=== PATIENT | male | born 1980 | race Caucasian/White ===

== ENCOUNTER 2022-02-22 00:49 | Inpatient (IN) | payer MEDICAID ==
[~2022-02-22] VITALS: Ht 177.8 cm; Wt 121.1 kg
[2022-02-22 00:59] VITALS: BP 125/82
--- NOTE | 2022-02-22 01:06 | NUR ---
PT AMBULATED TO BED #5
[2022-02-22] MEDS ORDERED: VANCOMYCIN 1,000 MG in DEXTROSE 5% 250 ML IV ONE (02:30)
[2022-02-22] MEDS ORDERED: KETOROLAC 30 MG/ML VIAL IVP ONE (02:30)
[2022-02-22 02:56] LABS: BASOPHILS # (AUTO) 0.1 K/uL (0.00-0.22); BASOPHILS % (AUTO) 0.7 % (0.0-2.0); EOSINOPHILS # (AUTO) 0.1 K/uL (0-0.4); EOSINOPHILS % (AUTO) 0.4 % (0.0-4.0); HEMATOCRIT 38.8 % (36-52); HEMOGLOBIN 13.2 g/dL (12.0-18.0); LYMPHOCYTES # (AUTO) 3.2 K/uL (2.0-11.5); LYMPHOCYTES % (AUTO) 14.9 % (20.5-51.1); MEAN CORPUSCULAR HEMOGLOBIN 31 pg (27-31); MEAN CORPUSCULAR HGB CONC 34 g/dL (33-37); MEAN CORPUSCULAR VOLUME 91.8 fL (80-94); MONOCYTES # (AUTO) 1.8 K/uL (0.8-1.0); MONOCYTES % (AUTO) 8.3 % (1.7-9.3); NEUTROPHILS # (AUTO) 16.3 K/uL (1.8-7.7); PLATELET COUNT (AUTO) 350 K/uL (140-450); RED BLOOD CELL COUNT(AUTO) 4.22 MIL/uL (4.20-6.10); RED CELL DISTRIBUTION WIDTH 12.7 % (11.6-13.7); WHITE BLOOD COUNT (AUTO) 21.5 K/uL (4.8-10.8)
[2022-02-22] MEDS ORDERED: cefTRIAXone 1,000 MG VIAL ONE (03:01)
[2022-02-22 03:12] LABS: ALBUMIN 3.6 g/dL (3.4-5.0); CREATININE 1.4 mg/dL (0.6-1.3); TOTAL BILIRUBIN 1.1 mg/dL (0.0-1.0)
[2022-02-22 03:14] LABS: NEUTROPHILS % (AUTO) 75.7 % (42.2-75.2)
--- NOTE | 2022-02-22 03:27 | NUR ---
MELIDA SWAB COLLECTED AND WALKED TO LAB.
[2022-02-22 03:31] LABS: ANION GAP 14.3 (8-16); CARBON DIOXIDE 24.2 mmol/L (21-32); POTASSIUM 3.5 mmol/L (3.5-5.1)
[2022-02-22] MEDS ORDERED: VANCOMYCIN 1,000 MG VIAL ONE (03:54)
[2022-02-22] MEDS ORDERED: NACL 0.9% 2,000 ML IV ONE (04:00)
--- NOTE | 2022-02-22 04:47 | NUR ---
us at bedside
[2022-02-22] MEDS ORDERED: ACET-10509 PO (04:55)
--- NOTE | 2022-02-22 05:58 | NUR ---
Pt sleeping in bed. fluids running. x2 side rails up for safety. blanket provided. vss.
--- NOTE | 2022-02-22 06:25 | NUR ---
RECEIVED PT FROM ER NURSE, TRANSPORTED VIA GURNEY. PT AMBULATED TO BED ON HIS OWN. PT ALERT,AWAKE AND ORIENTED.PT ON ROOM AIR, BREATHING EQUAL AND UNLABORED, NO DISTRESS NOTED. WOUND ON RIGHT ELBOW, SWELLING R UPPER EXTREMITY. NO DRAINAGE NOTED. IV ON L HAND, G 20.MRSA SWAB DONE, VS FOLLOWS BP - 132/83, HR 94, RR 17, O2 96%, T 98.2.ALL PRECAUTIONS IN PLACE. CALL LIGHT WITHIN REACH. WILL CONTINUE TO MONITOR.
--- NOTE | 2022-02-22 06:29 | NUR ---
Patient will be admitted to care of DR. BACA. Admited to MED-SURG. Will go to room 104 B. Belongings list completed. Report to RONDA.
--- NOTE | 2022-02-22 07:30 | NUR ---
RECEIVED REPORT FROM NIGHTSHIFT NURSE FOR CONTINUITY OF CARE. PLAN OF CARE DISCUSSED. PT CURRENTLY SLEEPING BUT EASILY AROUSED. IV BOLUS STILL RUNNING ON LEFT HAND IV. PT A/OX4, BREATHING EVEN, REGULAR, AND UNLABORED ON RA. CUT ON RIGHT ELBOW NOTED, PT DENIES PAIN AT THIS TIME. PT AMBULATORY, AND CONTINENT OF THE BOWEL AND BLADDER. PT IN STABLE CONDITION.
[2022-02-22 08:00] VITALS: BP 135/79
--- NOTE | 2022-02-22 08:30 | NUR ---
PATIENT HAS BEEN SCREENED AND CATEGORIZED LOW NUTRITION RISK. PATIENT WILL BE SEEN WITHIN 7 DAYS OF ADMISSION. 02/22/22-02/28/[address]
--- NOTE | 2022-02-22 09:30 | NUR ---
PT VISUALLY ASSESSED, CURRENTLY SLEEPING. PT IN STABLE CONDITION, NO SIGNS OF DISTRESS NOTED AT THIS TIME.
[2022-02-22] MEDS ORDERED: MAGNESIUM OXIDE 400 MG TAB PO PRN (10:20)
[2022-02-22] MEDS ORDERED: DOCUSATE SODIUM 100 MG GELCAP PO PRN (10:20)
[2022-02-22] MEDS ORDERED: POTASSIUM CHLORIDE 10 MEQ TABER PO PRN (10:20)
[2022-02-22] MEDS ORDERED: MORPHINE SULFATE 2 MG/ML SYR IVP PRN (10:20)
[2022-02-22] MEDS ORDERED: ACETAMINOPHEN 325 MG TAB PO PRN (10:20)
[2022-02-22] MEDS ORDERED: ONDANSETRON 4 MG/2 ML VIAL IM/IVP PRN (10:20)
[2022-02-22] MEDS ORDERED: SODIUM PHOS / POTASSIUM PHOS 1 PKT PDR PO PRN (10:20)
[2022-02-22] MEDS ORDERED: VANCOMYCIN PER PHARMACY MC PRN (10:30)
[2022-02-22 10:58] LABS: MAGNESIUM 1.9 mg/dL (1.8-2.4); PHOSPHORUS 4.1 mg/dL (2.5-4.9)
--- NOTE | 2022-02-22 11:00 | NUR ---
PT'S AT THE BESIDE. DISCUSSED PT'S CURRENT PLAN OF CARE FOR IV ANTIBIOTICS. PT IN STABLE CONDITION, WILL CONTINUE TO MONITOR.
[2022-02-22] MEDS: NACL 0.9% 1,000 ML IV SCH (11:07)
[2022-02-22] MEDS: HYDROcodone/APAP 5/325 MG 1 TAB TAB PO PRN (12:35)
--- NOTE | 2022-02-22 12:35 | NUR ---
PT COMPLAINED OF PAIN 7/10 IN UPPER RIGHT EXTREMITY. PRN NORCO GIVEN.
--- NOTE | 2022-02-22 13:50 | NUR ---
PT'S BROTHER AT THE BEDSIDE, PT VISUALLY ASSESSED AND IN STABLE CONDITION, DENIES PAIN AT THIS TIME.
--- NOTE | 2022-02-22 15:00 | NUR ---
PT VISUALLY ASSESSED. PT IN STABLE CONDITION, DENIES PAIN AT THIS TIME. REQUESTED ICE PACK FOR HIS ARM.
[2022-02-22 16:00] VITALS: BP 134/84
--- NOTE | 2022-02-22 18:00 | NUR ---
PT VISUALLY ASSESSED. PT IN STABLE CONDITION, DENIES PAIN AT THIS TIME.
[2022-02-22] MEDS: VANCOMYCIN 1,500 MG in DEXTROSE 5% 500 ML IV SCH (18:14)
--- NOTE | 2022-02-22 19:36 | NUR ---
ENDORSED PT TO NIGHTSHIFT NURSE FOR CONTINUITY OF CARE. DISCUSSED PLAN OF CARE. PT STABLE CONDITION.
--- NOTE | 2022-02-22 20:00 | NUR ---
RECEIVED REPORT FROM MORNING SHIFT NURSE FOR CONTINUITY OF CARE. PATIENT ASLEEP WITH NO S/S OF DISTRESS NOTED. PATIENT IS ON ROOM AIR, AOX4. PATIENT IV SITE ON LEFT HAND GAUGE 20 INFUSING NS, 40 CC/HOUR. CALL LIGHT WITHIN REACH. ALL SAFETY MEASURE IN PLACE.
--- NOTE | 2022-02-22 22:00 | NUR ---
PATIENT IS AWAKE AND TALKING TO HER IN CITIZEN OF [place]. NO S/S OF DISTRESS NOTED. VITAL SIGNS ARE WITHIN NORMAL RANGE, SATING ON 96%. PATIENT'S INFORMED REGARDING THE VISITING HOURS IN HOSPITAL. WILL CONTINUE TO MONITOR.
--- NOTE | 2022-02-23 | NUR ---
PATIENT IS ON SLEEP. CHEST RISE AND FALL WAS NOTED. CALL LIGHT WITHIN REACH. ALL SAFETY MEASURES WAS IMPLEMENTED. WILL CONTINUE TO MONITOR.
--- NOTE | 2022-02-23 02:00 | NUR ---
PATIENT IS ON SLEEP. CHEST RISE AND FALL WAS NOTED. PATIENT HAS IV OF NS RUNNING AT 40ML/HR, IN LEFT HAND, GAUGE 20. CALL LIGHT WITHIN REACH. ALL SAFETY MEASURES WAS IMPLEMENTED. WILL CONTINUE TO MONITOR.
[2022-02-23 04:00] VITALS: BP 141/90
[2022-02-23] MEDS: VANCOMYCIN 1,500 MG in DEXTROSE 5% 500 ML IV SCH (04:34)
--- NOTE | 2022-02-23 06:00 | NUR ---
PATIENT DUE MEDICATION WAS GIVEN. MORNING CARE WAS GIVEN. CALL LIGHT WITHIN REACH. ALL SAFETY MEASURE WAS IMPLEMENTED. WILL CONTINUE TO MONITOR.
--- NOTE | 2022-02-23 06:47 | NUR ---
PT IS STABLE. NO ACUTE EVENTS THROUGHOUT THE NIGHT. NO S/SX OF DISTRESS NOTED. ALL NEEDS MET.DENIES PAIN AT THE MOMENT. ALL PRECAUTIONS IN PLACE.CALL LIGHT WITHIN REACH. WILL ENDORSE TO AM SHIFT NURSE.
[2022-02-23 07:29] LABS: BASOPHILS # (AUTO) 0.1 K/uL (0.00-0.22); BASOPHILS % (AUTO) 0.9 % (0.0-2.0); EOSINOPHILS # (AUTO) 0.1 K/uL (0-0.4); EOSINOPHILS % (AUTO) 0.8 % (0.0-4.0); HEMOGLOBIN 12.4 g/dL (12.0-18.0); LYMPHOCYTES # (AUTO) 2.6 K/uL (2.0-11.5); LYMPHOCYTES % (AUTO) 16.5 % (20.5-51.1); MEAN CORPUSCULAR HEMOGLOBIN 31 pg (27-31); MEAN CORPUSCULAR HGB CONC 34 g/dL (33-37); MEAN CORPUSCULAR VOLUME 93.2 fL (80-94); MONOCYTES # (AUTO) 1.4 K/uL (0.8-1.0); NEUTROPHILS # (AUTO) 11.6 K/uL (1.8-7.7); NEUTROPHILS % (AUTO) 72.8 % (42.2-75.2); PLATELET COUNT (AUTO) 334 K/uL (140-450); RED BLOOD CELL COUNT(AUTO) 3.97 MIL/uL (4.20-6.10); RED CELL DISTRIBUTION WIDTH 13.2 % (11.6-13.7); WHITE BLOOD COUNT (AUTO) 15.9 K/uL (4.8-10.8)
--- NOTE | 2022-02-23 07:30 | NUR ---
ENDORSED PATIENT TO MORNING SHIFT NURSE FOR CONTINUITY OF CARE.
--- NOTE | 2022-02-23 07:31 | NUR ---
RECEIVED REPORT FROM MOLD SHOP SUPERVISOR NURSE FOR CONTINUITY OF CARE. PT IN BED SLEEPING AT THIS TIME. RESPIRATIONS ARE EVEN AND UNLABORED ON ROOM AIR. NO SIGNS OF DISTRESS NOTED. PT IS ALERT AND ORIENTED X4, ABLE TO VERBALIZE, ABLE TO FOLLOW COMMANDS. PERSIAN SPEAKING. PT IS ON CCHO DIET, ABD IS NONTENDER, NONDISTENDED WITH BOWEL SOUNDS PRESENT. PT IS CONTINENT OF BOWEL AND BLADDER. PT ABLE TO AMBULATE TO REST ROOM INDEPENDENTLY. PT HAS IV TO L HAND, 20G. PT HAD WOUND TO R ELBOW. SKIN IS WARM, AND DRY. CALL LIGHT WITHIN REACH. ALL SAFETY MEASURES IN PLACE. WILL CONTINUE TO MONITOR.
[2022-02-23 07:40] LABS: ANION GAP 13.4 (8-16); CARBON DIOXIDE 23.9 mmol/L (21-32); CREATININE 1.2 mg/dL (0.6-1.3); POTASSIUM 4.3 mmol/L (3.5-5.1)
[2022-02-23 08:00] VITALS: BP 116/79
--- NOTE | 2022-02-23 08:00 | NUR ---
Patient's Plan of Care was discussed and reviewed with NORA Ly
[2022-02-23] MEDS: PANTOPRAZOLE 40 MG TABEC PO SCH (09:09)
--- NOTE | 2022-02-23 09:10 | NUR ---
ADMINISTERED ALL SCHEDULED MEDICATIONS. EDUCATED PT ON MEDS ADMINISTERED. PT VERBALIZED UNDERSTANDING. WILL CONTINUE TO MONITOR.
[2022-02-23] MEDS: NACL 0.9% 1,000 ML IV SCH (10:23)
[2022-02-23] MEDS: HYDROcodone/APAP 5/325 MG 1 TAB TAB PO PRN ×2 (10:31→22:21)
--- NOTE | 2022-02-23 10:32 | NUR ---
PT COMPLAINING OF PAIN, STATES PAIN IS 6/10. MEDICATED WITH NORCO. WILL CONTINUE TO MONITOR.
--- NOTE | 2022-02-23 12:26 | NUR ---
DR CERNA HERE TO SEE PT. PLACED ORDERS FOR NPO, PT SCHEDULED FOR I&D TONIGHT. WILL CONTINUE TO MONITOR.
--- NOTE | 2022-02-23 14:09 | NUR ---
DC PLANNIN YRS OLD MALE PATIENT WAS ADMITTED FROM HOME WITH A DX OF CELLULITIS, FAILURE OF OUT PATIENT TREATMENT. PATIENT HAS NO MEDICAL HISTORY. XR RIGHT ELBOW SHOWED NO ACUTE FRACTURE, SOFT TISSUES APPEARS SWOLLEN WITH EDEMA. US SOFT TISSUE EXTENSIVE EDEMA OF THE RIGHT UPPER EXTREMITY WITH PHLEGMONOUS APPEARING AREA . ADMINISTERED IVF, IV ABX ROCEPHIN AND VANCOMYCIN. CONSULTED WITH SURGEON DR CERNA. DC PLAN TO GO HOME WHEN STABLE. CM TO FOLLOW Addendum: 02/24/22 at 1421 by Renae Beckett RN DC PLANNING: I&D DONE ON RIGHT FOREARM ABSCESS/FASCITIS BY DR CERNA. CONTINUE IV ABX VANCO AND ROCEPHIN. DC PLAN TO GO HOME WHEN STABLE. CM TO FOLLOW
[2022-02-23] MEDS ORDERED: BUPIVACAINE-MPF 0.25% 30 ML VIAL INJ ONE (15:12)
--- NOTE | 2022-02-23 15:26 | NUR ---
WENT TO DO ROUND ON PT. PT IN BED SLEEPING AT THIS TIME. RESPIRATIONS ARE EVEN AND UNLABORED ON ROOM AIR. NO SIGNS OF DISTRESS NOTED. FAMILY AT BEDSIDE. WILL CONTINUE TO MONITOR.
[2022-02-23 16:00] VITALS: BP 129/80
--- NOTE | 2022-02-23 17:23 | NUR ---
OR TEAM ON UNIT TO OBSERVER ELECTRICAL PROSPECTING PT FOR SCHEDULED PROCEDURE. PT OFF UNIT.
--- NOTE | 2022-02-23 17:45 | NUR ---
PHARMACY BROUGHT IV VANCOMYCIN. INFORMED PHARMACY THAT PT WAS OFF UNIT IN SURGERY. PER PHARMACY, SOON PT RETURNS TO [facility]ST UNIT, ADMINISTER VANCOMYCIN AND CONTINUE ADMINISTRATION SCHEDULED.
[2022-02-23] MEDS ORDERED: fentaNYL citrate 0.05 MG/ML VIAL ONE (18:11)
[2022-02-23] MEDS ORDERED: MORPHINE SULFATE 2 MG/ML SYR IVP PRN (18:50)
[2022-02-23] MEDS ORDERED: ONDANSETRON 4 MG/2 ML VIAL IV PRN (18:50)
[2022-02-23] MEDS ORDERED: MORPHINE SULFATE 4 MG/ML SYR IV PRN (18:50)
[2022-02-23] MEDS ORDERED: ONDANSETRON 4 MG/2 ML VIAL IVP PRN (18:50)
[2022-02-23] MEDS ORDERED: HYDROcodone/APAP 5/325 MG 1 TAB TAB PO PRN (18:50)
[2022-02-23] MEDS ORDERED: HYDROmorphone 1 MG/ML AMP IVP PRN ×2 (18:50)
--- NOTE | 2022-02-23 19:16 | NUR ---
ENDORSED PT TO TELEPHONE CLEANER NURSE FOR CONTINUITY OF CARE. PT IS IN OR AT THIS TIME.
--- NOTE | 2022-02-23 19:17 | NUR ---
PATIENT WAS IN SURGERY. PATIENT WAS ENDORSED BY AM SHIFT. [email or web address]
--- NOTE | 2022-02-23 19:35 | NUR ---
PATIEMT HAS RETURNED FROM SURGERY. PATIENT IS ALERT AND ORIENTED X 4 WITH SPOUSE A BEDSIDE. PATIENT WAS GIVEN JUICE AND WATER BY SURGICAL STAFF NAZIA MOJICA. PATIENT DENIES ANY PAIN/DISCOMFORT AT THIS TIME. ROCEPHIN WILL RESUME PER PHARMACY REQUEST. SIDE RAILS UP X 2 AND CALL LIGHT WITHIN REACH FOR ALL ASSISTANCE AND NEEDS. [email or web address]
[2022-02-23] MEDS: VANCOMYCIN IV SCH (20:10)
[2022-02-23] MEDS: NACL 0.9% IV SCH (20:10)
--- NOTE | 2022-02-23 23:26 | NUR ---
PATIENT IN BED ASLEEP AFTER ALL MEDICATION WERE GIVEN AND PAIN MANAGEMENT FOR RIGHT ARM. BED IS AT THE LOWEST LEVEL. PATIENT WAS ABLE TO AMBULATE TO THE RESTROOM WITHOUT ANY PROBLEMS. WAS GIVEN WATER AND JUICE. NO NOTED RESPIRATORY DISTRESS. CHEST RISING AND FALLING EVENLY. SIDE RAILS UP X 2 FOR COMFORT AND ADJUSTMENT. CALL LIGHT WITHIN REACH. PATIENT WAS ENCOURAGED TO USE FOR ASSISTANCE AND NEEDS. [email or web address]
[2022-02-24] VITALS: BP 129/80
--- NOTE | 2022-02-24 01:54 | NUR ---
PATIENT WAS NOTED IN BED ASLEEP. CHEST RISING AND FALLING WITHOUT DISTRESS. CALL LIGHT WITHIN REACH. [email or web address]
--- NOTE | 2022-02-24 03:07 | NUR ---
PATIENT WAS NOTED IN BED AWAKE ON CELL PHONE. NO COMPLAINTS OF PAIN/DISCOMFORT. CHEST RISING AND FALLING WITHOUT DISTRESS. CALL LIGHT WITHIN REACH. [email or web address]
--- NOTE | 2022-02-24 05:06 | NUR ---
PATIENT WAS NOTED IN BED ASLEEP. CHEST RISING AND FALLING WITHOUT DISTRESS. CALL LIGHT WITHIN REACH. [email or web address]
[2022-02-24] MEDS: VANCOMYCIN IV SCH ×2 (06:25→20:32)
[2022-02-24] MEDS: NACL 0.9% IV SCH ×2 (06:25→20:32)
[2022-02-24 07:30] LABS: ANION GAP 13.3 (8-16); BASOPHILS % (AUTO) 0.3 % (0.0-2.0); HEMATOCRIT 36.3 % (36-52); HEMOGLOBIN 12.3 g/dL (12.0-18.0); LYMPHOCYTES # (AUTO) 1.7 K/uL (2.0-11.5); LYMPHOCYTES % (AUTO) 9.5 % (20.5-51.1); MEAN CORPUSCULAR HEMOGLOBIN 31 pg (27-31); MEAN CORPUSCULAR HGB CONC 34 g/dL (33-37); MEAN CORPUSCULAR VOLUME 92.1 fL (80-94); MONOCYTES # (AUTO) 0.9 K/uL (0.8-1.0); MONOCYTES % (AUTO) 5.5 % (1.7-9.3); NEUTROPHILS # (AUTO) 14.7 K/uL (1.8-7.7); NEUTROPHILS % (AUTO) 84.7 % (42.2-75.2); PLATELET COUNT (AUTO) 402 K/uL (140-450); POTASSIUM 4.3 mmol/L (3.5-5.1); RED BLOOD CELL COUNT(AUTO) 3.94 MIL/uL (4.20-6.10); RED CELL DISTRIBUTION WIDTH 12.8 % (11.6-13.7); WHITE BLOOD COUNT (AUTO) 17.4 K/uL (4.8-10.8)
--- NOTE | 2022-02-24 07:31 | NUR ---
ENDORSED TO PARAM RN SHIFT NURSE. PATIENT WAS STABLE AT CHANGE OF SHIFT. [email or web address]
[2022-02-24 08:00] VITALS: BP 135/89
[2022-02-24] MEDS: PANTOPRAZOLE 40 MG TABEC PO SCH (09:34)
[2022-02-24] MEDS: NACL 0.9% 1,000 ML IV SCH ×2 (09:35→15:55)
--- NOTE | 2022-02-24 12:00 | NUR ---
DISCHARGE PLANNING PATIENT IS A 41-YEAR-OLD MALE ADMITTED ON 02/22/2022 AT [facility]/ED DUE TO COMPLAINTS OF RIGHT ARM PAIN . PATIENT REPORTED HE ACCIDENTALLY CUT HIS ARM LAST WEEK AND SOUGHT MEDICAL ATTENTION BUT DID NOT IMPROVE THE SWELLING OR PAIN. PATIENT HAS NO OTHER MEDICAL HX.(SLOVAK SPEAKING). SW MET WITH PATIENT AND HIS MINI PEÑA AT BEDSIDE TO DISCUSS AND GATHER PATIENT'S COLLATERAL INFORMATION. PATIENT REPORTED LIVING AT HOME WITH HIS AND KIDS. PATIENT STATED HAVING GOOD FAMILY SUPPORT. PATIENT ALSO REPORTED BEEN ACTIVE AND INDEPENDENT AT HOME; AND AT WORK. PATIENT REPORTED NOT HAVING ADVANCE DIRECTIVES AND WAS INTERESTED ON GETTING INFORMATION FORMS PROVIDED BY SW AT THE TIME OF VISIT. PATIENT REPORTED NOT HAVING OR NEEDING DME AND NOT HAVING ANY ISSUES WITH GETTING OR TAKING ANY MEDICATIONS. PATIENT STATED NOT HAVING A PCP AND ONLY GOING TO SEE A DOCTOR WHEN HE REALLY DO NOT FEEL WELL [facility]. SW DISCUSSED WITH PATIENT THE IMPORTANCE OF MAKING A FOLLOW UP APPT. AFTER HE IS DC FROM [facility]. PATIENT AGREED TO MAKE HIS OWN APPOINTMENTS WITH DOCTOR AT CLINIC NEAR HIS HOME AFTER HE DISCHARGES FROM [facility]. PATIENT STATED THAT HIS WILL BE ASSISTING HIM WITH TRANSPORTATION BACK HOME WHEN HE IS READY FOR DISCHARGE. SW WILL FOLLOW UP WITH PATIENT NEEDED.
--- NOTE | 2022-02-24 13:00 | NUR ---
wound care done with wet to dry packing, covered with gauze and kerlix, secured with tape. Patient tolerated procedure well
[2022-02-24 16:00] VITALS: BP 134/73
--- NOTE | 2022-02-24 17:00 | NUR ---
ccalled pharmacy for vanco dose, as per pharmacist still waiting for vanco trough. Then will make vanco dose following vanco trough results.
[2022-02-24] MEDS: HYDROcodone/APAP 5/325 MG 1 TAB TAB PO PRN (17:10)
--- NOTE | 2022-02-24 18:45 | NUR ---
spoke with pharmacy, vanco trough is 13. To continue current vanco dosing, pharmacy will make vancomycin IV med and send to RN for administration
--- NOTE | 2022-02-24 20:00 | NUR ---
RECEIVED BEDSIDE REPORT FROM DAY RN FOR CONTINUITY OF CARE. RECEIVED PATIENT A/A/OX4, LATVIAN SPEAKING ONLY. AT THE BEDSIDE. PT NOT IN ANY DISTRESS AND NO COMPLAIN AT THIS TIME. IVF INFUSING ORDERED. RIGHT ELBOW WOUND DRESSING C/D/I. INSTRUCTED PT TO CALL IF HE NEEDS ANYTHING. CALL LIGHT WITHIN REACH. WILL CONTINUE POC.
--- NOTE | 2022-02-24 22:00 | NUR ---
ALL SCHEDULED MEDICATIONS GIVEN TO THE PATIENT ORDERED. NO ADVERSE DRUG REACTION NOTED AND NO COMPLAIN FROM THE PATIENT. WILL CONTINUE OBSERVATION.
[2022-02-25] VITALS: BP 102/63
--- NOTE | 2022-02-25 | NUR ---
PATIENT VITAL SIGNS STABLE, AFEBRILE, SATING 96% ON RA. NO COMPLAIN OF PAIN AT THIS TIME. PT NOT IN ANY DISTRESS. CALL LIGHT WITHIN REACH.
--- NOTE | 2022-02-25 02:00 | NUR ---
PATIENT ASLEEP AT THIS TIME. VISIBLE CHEST RISE AND FALL NOTED. PT NOT IN ANY DISTRESS. WILL CONTINUE OBSERVATION.
--- NOTE | 2022-02-25 04:00 | NUR ---
PATIENT STILL ASLEEP AND EASY TO WAKE UP. NOT IN ANY DISTRESS AND COMPLAIN AT THIS TIME. CALL LIGHT WITHIN REACH.
[2022-02-25] MEDS: VANCOMYCIN IV SCH (05:16)
[2022-02-25] MEDS: NACL 0.9% IV SCH (05:16)
--- NOTE | 2022-02-25 06:17 | NUR ---
NO ACUTE EVENT THROUGHOUT THE NIGHT. PATIENT NOT IN ANY DISTRESS AND NO COMPLAIN AT THIS TIME. ALL NEEDS ATTENDED. CALL LIGHT WITHIN REACH. WILL ENDORSE THE PATIENT TO THE ONCOMING RN FOR CONTINUITY OF CARE.
[2022-02-25 07:02] LABS: BASOPHILS # (AUTO) 0.1 K/uL (0.00-0.22); BASOPHILS % (AUTO) 0.7 % (0.0-2.0); EOSINOPHILS # (AUTO) 0.2 K/uL (0-0.4); EOSINOPHILS % (AUTO) 1.9 % (0.0-4.0); HEMATOCRIT 34.2 % (36-52); HEMOGLOBIN 11.8 g/dL (12.0-18.0); LYMPHOCYTES # (AUTO) 3.4 K/uL (2.0-11.5); LYMPHOCYTES % (AUTO) 29.8 % (20.5-51.1); MEAN CORPUSCULAR HEMOGLOBIN 32 pg (27-31); MEAN CORPUSCULAR HGB CONC 34 g/dL (33-37); MEAN CORPUSCULAR VOLUME 92.5 fL (80-94); MONOCYTES % (AUTO) 8.8 % (1.7-9.3); NEUTROPHILS # (AUTO) 6.7 K/uL (1.8-7.7); NEUTROPHILS % (AUTO) 58.8 % (42.2-75.2); PLATELET COUNT (AUTO) 374 K/uL (140-450); RED BLOOD CELL COUNT(AUTO) 3.69 MIL/uL (4.20-6.10); RED CELL DISTRIBUTION WIDTH 12.9 % (11.6-13.7); WHITE BLOOD COUNT (AUTO) 11.3 K/uL (4.8-10.8)
--- NOTE | 2022-02-25 07:05 | NUR ---
RECEIVED REPORT FROM CONTINUOUS DRYOUT OPERATOR HELPER NURSE FOR CONTINUITY OF CARE. PT IS SLEEPING. RESPIRATIONS EVEN AND UNLABORED ON ROOM AIR. NO DISTRESS NOTED. SKIN IS WARM AND DRY TO TOUCH. IV SITE ON LEFT HAND G20 INFUSING NS AT 40ML/HR AND VANCOMYCIN AT THIS TIME. PT ON CONTACT PRECAUTION. SIGNS AT THE DOOR IN PLACE. CALL LIGHT WITHIN REACH. SAFETY MEASURES IN PLACE. WILL CONTINUE TO MONITOR.
[2022-02-25 07:11] LABS: ANION GAP 14.1 (8-16); CARBON DIOXIDE 25.8 mmol/L (21-32); CREATININE 1.1 mg/dL (0.6-1.3); POTASSIUM 3.9 mmol/L (3.5-5.1)
[2022-02-25 08:00] VITALS: BP 115/82
[2022-02-25] MEDS ORDERED: CHLORHEXADINE GLUC 2% CLOTH TP SCH (09:00)
[2022-02-25] MEDS ORDERED: MUPIROCIN 2% OINT 22 GM TUBE TP SCH (09:00)
[2022-02-25] MEDS ORDERED: AZIT250T3 PO (09:42)
[2022-02-25] MEDS ORDERED: CEPH-588 PO (09:42)
[2022-02-25] MEDS ORDERED: IBUP-2213 PO (09:43)
[2022-02-25] MEDS: PANTOPRAZOLE 40 MG TABEC PO SCH (09:49)
--- NOTE | 2022-02-25 09:50 | NUR ---
ADMINISTERED SCHEDULED MORNING MED. PT TEACHING ABOUT MEDS GIVEN. PT VERBALIZED UNDERSTANDING. PT TOLERATED WELL. WILL CONTINUE TO MONITOR.
--- NOTE | 2022-02-25 10:43 | NUR ---
WOUND DRESSING CHANGE DONE. PT TOLERATED WELL. PICTURE WAS TAKEN. PT COMPLAINING OF PAIN 5/10 ON HIS RIGHT ARM. WILL MEDICATE PT WITH PRN PAIN MED.
--- NOTE | 2022-02-25 10:45 | NUR ---
INFORMED DR CERNA ABOUT THE DISCHARGE ORDER. ASKED IF HE HAS MORE DC ORDER FOR PT. DR CERNA SAID NO JUST THE PO ABX AND FAMILY DRESSING CHANGES. WILL INCLUDE IN DISCUSSING THE DISCHARGE PAPERS TO THE PT.
[2022-02-25 13:23] VITALS: BP 115/82
--- NOTE | 2022-02-25 14:16 | NUR ---
NURSE WILL USE THE JUMBO OPERATOR LINE WHEN DISCUSSING THE DISCHARGE PAPER TO THE PT BUT PT STATED "MY IS COMING. SHE'S NOW IN THE LOBBY. SHE SPEAKS ANDORRAN. YOU CAN DISCUSS THE DISCHARGE PAPERS WHEN SHE'S HERE. I DON'T WANT TO USE THE JUMBO OPERATOR LINE." DISCUSSED THE DISCHARGE PAPER TO THE PT AND . IS THE ONE TO DO DRESSING CHANGE AT HOME DAILY PER PT. CLARIFIED WITH THE PT AND HOW TO DO THE DRESSING CHANGE. DISCUSSED THE MEDS TO BE TAKEN HOME. REITERATED TO SEE HIS PCP WHEN DISCHARGED. IV CATHETER REMOVED IS INTACT. REMOVED WRIST BAND. ALL PT BELONGINGS TAKEN UPON DISCHARGED. PT IS STABLE. PT AND WALKED BY THE TRUSS PULLER HELPER OUT.
== END 2022-02-25 14:53 | disposition home or self-care (01) | DRG 710 ==
LOC: MED 00:49 → MMU 03:41 → MTU 05:30
PROVIDERS: ADMIT Hospitalist; ATTEND Hospitalist
PROC: 0J9D0ZZ Drainage of Right Upper Arm Subcutaneous Tissue and Fascia, Open Approach (ICD-10-PCS; principal; 2022-02-22)
DX: A41.9 Sepsis, unspecified organism (principal); N17.0 Acute kidney failure with tubular necrosis; L02.413 Cutaneous abscess of right upper limb; L03.113 Cellulitis of right upper limb; Z20.822 Contact with and (suspected) exposure to COVID-19; M72.9 Fibroblastic disorder, unspecified; E66.9 Obesity, unspecified; Z68.38 Body mass index [BMI] 38.0-38.9, adult
CPT/HCPCS: 36415; 73080; 76536; 80048; 80053; 80202; 82948; 83036; 83605; 83735; 84100; 85025; 87040; 87070; 87075; 87081; 87186; 87205; 96365; 96367; 96375; 99291; J0696; J1885; J2270; J3010; J3370; J3490; J7030; J7060; Q0092

== ENCOUNTER 2022-05-23 16:01 | Emergency (ER) | payer SELFPAY ==
[~2022-05-23] VITALS: Ht 180.3 cm; Wt 122.9 kg
[~2022-05-23 16:01] MED LIST: ACET-10509 PO; AZIT250T3 PO; CEPH-588 PO; IBUP-2213 PO
[2022-05-23 16:07] VITALS: BP 136/65
[2022-05-23] MEDS ORDERED: KETOROLAC 30 MG/ML VIAL IM ONE (17:35)
[2022-05-23] MEDS ORDERED: IBUP-2213 PO (17:40)
--- NOTE | 2022-05-23 17:46 | NUR ---
BIB SELF C/O 10/10 L KNEE PAIN S/P INJURY X 2 DAYS.
[2022-05-23 18:55] VITALS: BP 121/78
--- NOTE | 2022-05-23 18:55 | NUR ---
Patient discharged with v/s stable. Written and verbal after care instructions given and explained. Patient alert, oriented and verbalized understanding of instructions. Ambulatory with CRUTCHES. All questions addressed prior to discharge. ID band removed. Patient advised to follow up with PMD. Rx of IBUPROFEN given. Patient educated on indication of medication including possible reaction and side effects. Opportunity to ask questions provided and answered.
== END 2022-05-23 18:55 | disposition home or self-care (01) ==
LOC: MED 16:41
DX: S83.92XA Sprain of unspecified site of left knee, initial encounter (principal); Z79.899 Other long term (current) drug therapy; X50.1XXA Overexertion from prolonged static or awkward postures, initial encounter; Y93.89 Activity, other specified; Y92.89 Other specified places as the place of occurrence of the external cause; Y99.0 Civilian activity done for income or pay
CPT/HCPCS: 29505; 73562; 96372; 99283; J1885

== ENCOUNTER 2024-07-20 09:42 | Emergency (ER) | payer OTHER ==
[~2024-07-20] VITALS: Ht 172.7 cm; Wt 122.5 kg
[~2024-07-20 09:42] MED LIST changes: -ACET-10509 PO; +ACET500T99 PO
[2024-07-20 10:03] VITALS: BP 117/78; PULSE 85; RESP 18; TEMP 97; O2SAT 97
[2024-07-20] MEDS ORDERED: IBUP-2213 PO (12:34)
[2024-07-20 13:01] VITALS: BP 135/88; PULSE 74; RESP 16; TEMP 97; O2SAT 96
== END 2024-07-20 13:01 | disposition home or self-care (01) ==
LOC: MED 09:42
DX: S52.135A Nondisplaced fracture of neck of left radius, initial encounter for closed fracture (principal); S60.212A Contusion of left wrist, initial encounter; M25.512 Pain in left shoulder; Z79.899 Other long term (current) drug therapy; V23.49XA Other motorcycle driver injured in collision with car, pick-up truck or van in traffic accident, initial encounter; Y93.55 Activity, bike riding; Y92.410 Unspecified street and highway as the place of occurrence of the external cause; Y99.8 Other external cause status
CPT/HCPCS: 73030; 73080; 73110; 99284